=== PATIENT | male | born 1970 | race Caucasian/White ===

== ENCOUNTER 2017-06-14 17:56 | Observation (INO) | payer OTHER ==
[2017-06-14] MEDS ORDERED: Aspirin 81 MG Tab.Chew PO ONE (18:09)
[2017-06-14] MEDS ORDERED: Sodium Chloride 0.9% 10 ML Syringe FLUSH PRN (18:09)
[2017-06-14] MEDS ORDERED: Sodium Chloride 0.9% 2.5 ML Syringe FLUSH PRN (18:09)
[2017-06-14] MEDS ORDERED: Sodium Chloride 0.9% 1,000 ML IV ONE (18:09)
[2017-06-14] MEDS ORDERED: Nitroglycerin 0.4 MG Tab.SL SL ONE (18:09)
[2017-06-14] MEDS ORDERED: Nitroglycerin 2% Oint 1 GM UD Packet TOP ONE (18:14)
--- NOTE | 2017-06-14 18:14 | EDM.PDOC ---
ED HPI GENERAL MEDICAL PROBLEM - General Chief Complaint: Chest Pain Stated Complaint: CHEST PAIN Time Seen by Provider: 06/14/17 18:03 - History of Present Illness INITIAL COMMENTS - FREE TEXT/NARRATIVE: HISTORY AND PHYSICAL: History of present illness: Patient is 46-year-old white male with no significant past medical history presents with concern of left-sided chest pain started this morning described as dull ache he did have some radiation to his left arm he states this is minor on arrival he denies sulci shortness of breath diaphoresis nausea or vomiting. Review of systems: As per history of present illness and below otherwise all systems reviewed and negative. Past medical history: As per history of present illness and as reviewed below otherwise noncontributory. Surgical history: As per history of present illness and as reviewed below otherwise noncontributory. Social history: No reported history of drug or alcohol abuse. Family history: As per history of present illness and as reviewed below otherwise noncontributory. Physical exam: HEENT: Atraumatic, normocephalic, pupils reactive, negative for conjunctival pallor or scleral icterus, mucous membranes moist, throat clear, neck supple, nontender, trachea midline. Lungs: Clear to auscultation, breath sounds equal bilaterally, chest nontender. Heart: S1S2, regular, negative for clicks, rubs, or JVD. Abdomen: Soft, nondistended, nontender. Negative for masses or hepatosplenomegaly. Negative for costovertebral tenderness. Pelvis: Stable nontender. Genitourinary: Deferred. Rectal: Deferred. Extremities: Atraumatic, negative for cords or calf pain. Neurovascular unremarkable. Neuro: Awake, alert, oriented. Cranial nerves II through XII unremarkable. Cerebellum unremarkable. Motor and sensory unremarkable throughout. Exam nonfocal. Diagnostics: CBC CMP PT/INR troponin chest x-ray EKG Therapeutics: IV O2 monitor aspirin 324 mg Nitropaste 1 inch Impression: #1 chest pain Definitive disposition and diagnosis as appropriate pending reevaluation and review of above. Chest Pain Score (Numeric/FACES): 7 - Related Data Allergies Allergy/AdvReac Type Severity Reaction Status Date / Time No Known Allergies Allergy Verified 06/14/17 18:04 Home Meds: Home Meds Omeprazole 20 mg PO BID 06/14/17 [History] Past Medical History Gastrointestinal History: Reports: Other (See Below) Other Gastrointestinal History: vanegas's esophagus Social & Family History - Family History Family Medical History: Noncontributory - Tobacco Use Smoking Status *Q: Never Smoker - Caffeine Use Caffeine Use: Reports: Coffee - Recreational Drug Use Recreational Drug Use: No ED ROS GENERAL - Review of Systems Review Of Systems: ROS reveals no pertinent complaints other than HPI. ED EXAM, GENERAL - Physical Exam Exam: See Below (See dictation) Course - Vital Signs Last Recorded V/S: Last Vital Signs Temp 37.2 C 06/14/17 18:01 Pulse 70 06/14/17 18:01 Resp 20 06/14/17 18:01 BP 146/84 H 06/14/17 18:01 Pulse Ox 97 06/14/17 18:01 - Orders/Labs/Meds Orders: Active Orders 24 hr Category Date Time Status Cardiac Monitoring [RC] . DIRECTED Care 06/14/17 18:09 Active EKG 12 Lead [EKG Documentation Completion] [RC] STAT Care 06/14/17 18:11 Inactive EKG Documentation Completion [RC] STAT Care 06/14/17 18:09 Active Oxygen Therapy [RC] ASDIRECTED Care 06/14/17 18:09 Active Pulse Oximetry [RC] ASDIRECTED Care 06/14/17 18:09 Active Chest 1V Frontal [CR] Stat Exams 06/14/17 18:09 Taken UA W/MICROSCOPIC [URIN] Stat Lab 06/14/17 18:10 Ordered Sodium Chloride 0.9% [Normal Saline] 1,000 ml Med 06/14/17 18:09 Active IV .Bolus Sodium Chloride 0.9% [Saline Flush] Med 06/14/17 18:09 Active 10 ml FLUSH ASDIRECTED PRN Sodium Chloride 0.9% [Saline Flush] Med 06/14/17 18:09 Active 2.5 ml FLUSH ASDIRECTED PRN Saline Lock Insert [OM.PC] Stat Oth 06/14/17 18:09 Ordered Medication Orders Sodium Chloride (Normal Saline) 1,000 mls @ 125 mls/hr IV .Bolus ONE Stop: 06/15/17 02:08 Last Admin: 06/14/17 18:22 Dose: 125 mls/hr Sodium Chloride (Saline Flush) 10 ml FLUSH ASDIRECTED PRN PRN Reason: Keep Vein Open Sodium Chloride (Saline Flush) 2.5 ml FLUSH ASDIRECTED PRN PRN Reason: Keep Vein Open Labs: Laboratory Tests 06/14/17 06/14/17 Range/Units 18:07 18:07 WBC 6.94 (4.0-11.0) K/uL RBC 5.03 (4.50-5.90) M/uL Hgb 14.2 (13.0-17.0) g/dL Hct 41.1 (38.0-50.0) % MCV 81.7 (80.0-98.0) fL MCH 28.2 (27.0-32.0) pg MCHC 34.5 (31.0-37.0) g/dL RDW Std Deviation 39.5 (28.0-62.0) fl RDW Coeff of Milagro 13 (11.0-15.0) % Plt Count 191 (150-400) K/uL MPV 9.40 (7.40-12.00) fL Neut % (Auto) 59.5 (48.0-80.0) % Lymph % (Auto) 24.5 (16.0-40.0) % Archer % (Auto) 10.8 (0.0-15.0) % Eos % (Auto) 4.8 (0.0-7.0) % Baso % (Auto) 0.4 (0.0-1.5) % Neut # (Auto) 4.1 (1.4-5.7) K/uL Lymph # (Auto) 1.7 (0.6-2.4) K/uL Archer # (Auto) 0.8 (0.0-0.8) K/uL Eos # (Auto) 0.3 (0.0-0.7) K/uL Baso # (Auto) 0.0 (0.0-0.1) K/uL Nucleated RBC % 0.0 /100WBC Nucleated RBCs # 0 K/uL Sodium 141 (136-148) mmol/L Potassium 3.4 L (3.5-5.1) mmol/L Chloride 107 (98-107) mmol/L Carbon Dioxide 25.3 (21.0-32.0) mmol/L BUN 18 (7.0-18.0) mg/dL Creatinine 1.0 (0.8-1.3) mg/dL Est Cr Clr Drug Dosing 88.13 mL/min Estimated GFR (MDRD) > 60.0 ml/min Glucose 95 (74-106) mg/dL Calcium 8.7 (8.5-10.1) mg/dL Total Bilirubin 0.4 (0.2-1.0) mg/dL AST 25 (15-37) IU/L ALT 57 (14-63) IU/L Alkaline Phosphatase 43 L (46-116) U/L Troponin I < 0.050 (0.000-0.056) ng/mL Total Protein 7.4 (6.4-8.2) g/dL Albumin 3.7 (3.4-5.0) g/dL Globulin 3.7 H (2.0-3.5) g/dL Albumin/Globulin Ratio 1.0 L (1.3-2.8) Meds: Medications Generic Name Dose Route Start Last Admin Trade Name Freq PRN Reason Stop Dose Admin Sodium Chloride 1,000 mls @ 125 mls/hr 06/14/17 18:09 06/14/17 18:22 Normal Saline IV 06/15/17 02:08 125 mls/hr .Bolus ONE Administration Sodium Chloride 10 ml 06/14/17 18:09 Saline Flush FLUSH ASDIRECTED PRN Keep Vein Open Sodium Chloride 2.5 ml 06/14/17 18:09 Saline Flush FLUSH ASDIRECTED PRN Keep Vein Open Discontinued Medications Generic Name Dose Route Start Last Admin Trade Name Freq PRN Reason Stop Dose Admin Aspirin 324 mg 06/14/17 18:09 06/14/17 18:21 Aspirin PO 06/14/17 18:10 324 mg ONETIME ONE Administration Nitroglycerin 1 gm 06/14/17 18:14 06/14/17 18:22 Nitro-Bid 2% TOP 06/14/17 18:15 1 gm ONETIME ONE Administration Departure - Departure Time of Disposition: 19:07 Disposition: Refer to Observation Condition: Good Clinical Impression: Chest pain - Discharge Information Referrals: PCP,None [Primary Care Provider] - Forms: ED Department Discharge - My Orders Last 24 Hours: My Active Orders 06/14/17 18:09 Cardiac Monitoring [RC] . DIRECTED EKG Documentation Completion [RC] STAT Oxygen Therapy [RC] ASDIRECTED Pulse Oximetry [RC] ASDIRECTED Chest 1V Frontal [CR] Stat Sodium Chloride 0.9% [Normal Saline] 1,000 ml IV .Bolus Sodium Chloride 0.9% [Saline Flush] 10 ml FLUSH ASDIRECTED PRN Sodium Chloride 0.9% [Saline Flush] 2.5 ml FLUSH ASDIRECTED PRN Saline Lock Insert [OM.PC] Stat 06/14/17 18:10 UA W/MICROSCOPIC [URIN] Stat 06/14/17 18:11 EKG 12 Lead [EKG Documentation Completion] [RC] STAT - Assessment/Plan Last 24 Hours: My Active Orders 06/14/17 18:09 Cardiac Monitoring [RC] . DIRECTED EKG Documentation Completion [RC] STAT Oxygen Therapy [RC] ASDIRECTED Pulse Oximetry [RC] ASDIRECTED Chest 1V Frontal [CR] Stat Sodium Chloride 0.9% [Normal Saline] 1,000 ml IV .Bolus Sodium Chloride 0.9% [Saline Flush] 10 ml FLUSH ASDIRECTED PRN Sodium Chloride 0.9% [Saline Flush] 2.5 ml FLUSH ASDIRECTED PRN Saline Lock Insert [OM.PC] Stat 06/14/17 18:10 UA W/MICROSCOPIC [URIN] Stat 06/14/17 18:11 EKG 12 Lead [EKG Documentation Completion] [RC] STAT
[2017-06-14 18:47] LABS: CHLORIDE,CL 107 mmol/L (98-107); SODIUM,NA 141 mmol/L (136-148)
[2017-06-14] MEDS ORDERED: Acetaminophen 325 MG Tab PO PRN (20:51)
[2017-06-14] MEDS ORDERED: Ondansetron 4 MG/2 ML SDV IVPUSH PRN (20:51)
--- NOTE | 2017-06-14 20:57 | PCM.HP ---
H&P History of Present Illness - General Admit Problem/Dx: Admission Diagnosis/Problem Admission Diagnosis/Problem Chest pain - History of Present Illness Initial Comments - Free Text/Narative: 46 yo male with pmh of joann's esophagus who presents to the ED with chest pain. The chest pain started this morning which he describes as a constant leftsided chest pain that radiates to his shoulder. Moving his arm makes the pain worse. Exertion or rest does not change the chest pain. The chest pain has been constant for 12 hours. He thinks he has pulled a muscle but came to the ED because his told him to. Chest Pain Score (Numeric/FACES): 5 - Related Data Allergies/Adverse Reactions: Allergies Allergy/AdvReac Type Severity Reaction Status Date / Time No Known Allergies Allergy Verified 06/14/17 18:04 Home Medications: Home Meds Omeprazole 20 mg PO BID 06/14/17 [History] Acetaminophen [Tylenol] 650 mg PO Q4H PRN tablet 06/15/17 [Rx] Past Medical History Gastrointestinal History: Reports: Other (See Below) Other Gastrointestinal History: vanegas's esophagus Social & Family History - Family History Family Medical History: Noncontributory - Tobacco Use Smoking Status *Q: Never Smoker - Caffeine Use Caffeine Use: Reports: Coffee - Recreational Drug Use Recreational Drug Use: No H&P Review of Systems - Review of Systems: Review Of Systems: ROS reveals no pertinent complaints other than HPI. Exam - Exam Exam: See Below - Vital Signs Vital Signs: Last Vital Signs Temp 37.2 C 06/14/17 18:01 Pulse 71 06/14/17 19:25 Resp 17 06/14/17 19:25 BP 112/84 06/14/17 19:25 Pulse Ox 95 06/14/17 19:25 Weight: 104.2 kg - Exam General: Alert, Oriented HEENT: Mucosa Moist & [place] Neck: Supple, Trachea Midline Lungs: Clear to Auscultation, Normal Respiratory Effort Cardiovascular: Regular Rate, Regular Rhythm GI/Abdominal Exam: Soft, Non-Tender Extremities: Non-Tender, No Pedal Edema Skin: Warm, Dry, Intact - Patient Data Result Diagrams: 06/14/17 18:07 06/14/17 18:07 Problem List Initiated/Reviewed/Updated: Yes Orders Last 24hrs: Active Orders 24 hr Category Date Time Status Antiembolic Devices [RC] PER UNIT ROUTINE Care 06/14/17 20:52 Ordered Oxygen Therapy [RC] PRN Care 06/14/17 20:51 Ordered Up ad Sandra [RC] ASDIRECTED Care 06/14/17 20:51 Ordered VTE/DVT Education [RC] PER UNIT ROUTINE Care 06/14/17 20:51 Ordered Vital Signs [RC] Q4H Care 06/14/17 20:51 Ordered Regular Diet [DIET] Diet 06/14/17 Breakfast Ordered TROPONIN I [CHEM] Q6H Lab 06/15/17 00:00 Ordered TROPONIN I [CHEM] Q6H Lab 06/15/17 06:00 Ordered Acetaminophen [Tylenol] Med 06/14/17 20:51 Ordered 650 mg PO Q4H PRN Ondansetron [Zofran] Med 06/14/17 20:51 Ordered 4 mg IVPUSH Q4H PRN Sequential Compression Device [OM.PC] Per Unit Routine Oth 06/14/17 20:52 Ordered Resuscitation Status Routine Resus Stat 06/14/17 20:51 Ordered Medication Orders Sodium Chloride (Normal Saline) 1,000 mls @ 125 mls/hr IV .Bolus ONE Stop: 06/15/17 02:08 Last Admin: 06/14/17 18:22 Dose: 125 mls/hr Sodium Chloride (Saline Flush) 10 ml FLUSH ASDIRECTED PRN PRN Reason: Keep Vein Open Sodium Chloride (Saline Flush) 2.5 ml FLUSH ASDIRECTED PRN PRN Reason: Keep Vein Open Assessment/Plan Comment:: 46 yo male presents with chest pain. He was monitored overnight with no events on telemetry. He ruled out for acute coronary syndrome with serial troponins and EKG. He was discharged home to follow up with [facility] and outpatient cardiac stress testing referral.
--- NOTE | 2017-06-15 12:33 | CR ---
EXAM DATE: 06/14/17 PATIENT'S AGE: 46 Patient: JULISSA MITCHELL Facility: [place], [place] Site . Site : [id number] Study: XRay Chest [id number]/22/2018 7:06:43 PM Ordering Physician: Roxana Landry Final Report: INDICATION: CHEST PAIN TECHNIQUE: Chest 1 view. COMPARISON: None. FINDINGS: Cardiovascular and mediastinum: Heart size and vasculature are normal in caliber and appearance. Mediastinum is within normal limits. Lungs and pleural space: Lungs are clear. No sign of infiltrate or mass. No sign of pleural effusion. No pneumothorax. Bones and soft tissues: No significant findings. IMPRESSION: Unremarkable chest. Dictated by: Howie Geller MD @ 06/14/2017 19:13:22 (Electronic Signature) Report Signed by Proxy. B[facility] DAVID HOSPITALArnaud
== END 2017-06-15 12:45 | disposition home or self-care (01) ==
LOC: MW.ED 17:56 → MW.MS 19:08
PROVIDERS: ADMIT Family Medicine; ATTEND Family Medicine
DX: R07.9 Chest pain, unspecified (principal)
CPT/HCPCS: 36415; 71045; 80053; 81001; 84484; 85025; 96360; 96361; 99285; A9270; G0378; J7040; 99283

== ENCOUNTER 2018-11-17 15:08 | Emergency (ER) | payer OTHER ==
[2018-11-17] MEDS ORDERED: Tetracaine HCl/PF 0.5% 4 ML Bottle EYELF ONE (15:21)
--- NOTE | 2018-11-17 15:40 | EDM.PDOC ---
ED HPI GENERAL MEDICAL PROBLEM - General Chief Complaint: Eye Problems Stated Complaint: EYE PAIN Time Seen by Provider: 11/17/18 15:15 Source of Information: Reports: Patient History Limitations: Reports: No Limitations - History of Present Illness INITIAL COMMENTS - FREE TEXT/NARRATIVE: HISTORY AND PHYSICAL: History of present illness: Patient is a 48 old male presents to the ED today with concern of right eye pain 2 days. Patient states he is unsure if he got anything in his right eye but over the past 2 days has had redness and pain. Patient states he's been taking [id number] pain reliever with somewhat relief of symptoms. Patient denies any change in vision. Patient denies any other associated symptoms or any other symptoms or concerns at this time. Patient denies fever, chills, chest pain, shortness of breath, or cough. Denies headache, neck stiff ness, change in vision, syncope, or near syncope. Denies nausea, vomiting, abdominal pain, diarrhea, constipation, or dysuria. Has not noted any blood in urine or stool. Patient has been eating and drinking appropriately. Review of systems: As per history of present illness and below otherwise all systems reviewed and negative. Past medical history: As per history of present illness and as reviewed below otherwise noncontributory. Surgical history: As per history of present illness and as reviewed below otherwise noncontributory. Social history: See social history for further information Family history: As per history of present illness and as reviewed below otherwise noncontributory. Physical exam: General: Patient is alert, oriented, and in no acute distress. Patient sitting comfortably on exam table. HEENT: Atraumatic, normocephalic, pupils equal and reactive bilaterally, negative for conjunctival pallor or scleral icterus, mucous membranes moist, TMs normal bilaterally, throat clear, neck supple, nontender, trachea midline. No drooling or trismus noted. No meningeal signs. No hot potato voice noted. EOMs intact without pain or difficulty. The right sclera is injected. Visual acuity is intact. Fluorescein stain was lamp was performed and there is a pinpoint foreign body on the cornea at the 7 o'clock position. No obvious abrasion. Lungs: Clear to auscultation, breath sounds equal bilaterally, chest nontender. Heart: S1S2, regular rate and rhythm without overt murmur Abdomen: Soft, nondistended, nontender. Negative for masses or hepatosplenomegaly. Negative for costovertebral tenderness. Pelvis: Stable nontender. Genitourinary: Deferred. Rectal: Deferred. Skin: Intact, warm, dry. No lesions or rashes noted. Extremities: Atraumatic, negative for cords or calf pain. Neurovascular unremarkable. Neuro: Awake, alert, oriented. Cranial nerves II through XII unremarkable. Cerebellum unremarkable. Motor and sensory unremarkable throughout. Exam nonfocal. Notes: Dr. Matthew, ophthalmology on-call, consult on patient. Voices understanding and is agreeable to plan of care. Denies any further questions or concerns at this time. Diagnostics: Fluorescein was lamp Therapeutics: Tetracaine Prescription: Ciprodex Impression: Foreign body right eye Plan: 1. Apply medication to eye as prescribed. You can alternate ibuprofen and Tylenol as directed for pain and discomfort. 2. Go to [facility] tomorrow morning to be seen by Dr. Hess. His personal cell number is [phone]. He states that you can call this number tonight if her symptoms are not tolerable. The phone number and address has been provided to you above. 3. Return to the ED as needed and as discussed. Definitive disposition and diagnosis as appropriate pending reevaluation and review of above. - Related Data Allergies Allergy/AdvReac Type Severity Reaction Status Date / Time No Known Allergies Allergy Verified 11/17/18 15:53 Home Meds: Home Meds Ciprofloxacin/Dexamethasone [Ciprodex Otic Susp] 4 drop OT TID 5 Days #1 bottle 11/17/18 [Rx] Ciprofloxacin/Dexamethasone [Ciprodex Otic Susp] 4 drop OT TID 5 Days #1 bottle 11/17/18 [Rx] Past Medical History HEENT History: Reports: Impaired Vision, Other (See Below) Other HEENT History: wears contact lens Cardiovascular History: Reports: None Respiratory History: Reports: None Gastrointestinal History: Reports: Other (See Below) Other Gastrointestinal History: vanegas's esophagus Genitourinary History: Reports: None Musculoskeletal History: Reports: None Neurological History: Reports: None Psychiatric History: Reports: None Endocrine/Metabolic History: Reports: None Hematologic History: Reports: None Immunologic History: Reports: None Oncologic (Cancer) History: Reports: None Dermatologic History: Reports: None - Infectious Disease History Infectious Disease History: Reports: None - Past Surgical History Head Surgeries/Procedures: Reports: None GI Surgical History: Reports: Appendectomy Social & Family History - Family History Family Medical History: Noncontributory - Caffeine Use Caffeine Use: Reports: Coffee Caffeine Use Comment: 5-6cups/day ED ROS GENERAL - Review of Systems Review Of Systems: ROS reveals no pertinent complaints other than HPI. ED EXAM GENERAL W FULL EYE - Physical Exam Exam: See Below (See dictation) Course - Orders/Labs/Meds Meds: Medications Discontinued Medications Generic Name Dose Route Start Last Admin Trade Name Tam PRN Reason Stop Dose Admin Tetracaine HCl 1 ml 11/17/18 15:21 11/17/18 15:47 Tetracaine 0.5% Steri-Unit Ene EYELF 11/17/18 15:22 1 dose ASDIRECTED ONE Administration Departure - Departure Time of Disposition: 15:50 Disposition: Home, Self-Care 01 Clinical Impression: Foreign body, eye Qualifiers: Encounter type: initial encounter Laterality: right Qualified Code(s): T15.91XA - Foreign body on external eye, part unspecified, right eye, initial encounter - Discharge Information Prescriptions: Ciprofloxacin/Dexamethasone [Ciprodex Otic Susp] 4 drop OT TID 5 Days #1 bottle Ciprofloxacin/Dexamethasone [Ciprodex Otic Susp] 4 drop OT TID 5 Days #1 bottle Referrals: PCP,Unknown [Primary Care Provider] - Forms: ED Department Discharge Additional Instructions: The following information is given to patients seen in the emergency department who are being discharged to home. This information is to outline your options for follow-up care. We provide all patients seen in our emergency department with a follow-up referral. The need for follow-up, as well as the timing and circumstances, are variable depending upon the specifics of your emergency department visit. If you don't have a primary care physician on staff, we will provide you with a referral. We always advise you to contact your personal physician following an emergency department visit to inform them of the circumstance of the visit and for follow-up with them and/or the need for any referrals to a consulting specialist. The emergency department will also refer you to a specialist when appropriate. This referral assures that you have the opportunity for follow-up care with a specialist. All of these measure are taken in an effort to provide you with optimal care, which includes your follow-up. Under all circumstances we always encourage you to contact your private physician who remains a resource for coordinating your care. When calling for follow-up care, please make the office aware that this follow-up is from your recent emergency room visit. If for any reason you are refused follow-up, please contact the [facility] Emergency Department at and asked to speak to the emergency department charge nurse. [facility] [address] [place] [id number] [facility], Dr. Matthew, ophthalmology. [address] [place] [address] 1. Apply medication to eye as prescribed. You can alternate ibuprofen and Tylenol as directed for pain and discomfort. 2. Go to [facility] tomorrow morning to be seen by Dr. Hess. His personal cell number is [phone]. He states that you can call this number tonight if her symptoms are not tolerable. The phone number and address has been provided to you above. 3. Return to the ED as needed and as discussed.
[2018-11-17] MEDS ORDERED: Ciprofloxacin 0.3% Ophth Soln 5 ML Bottle EYERT STA (17:54)
== END 2018-11-17 16:01 | disposition home or self-care (01) ==
LOC: MW.ED 15:08
DX: T15.91XA Foreign body on external eye, part unspecified, right eye, initial encounter (principal)
CPT/HCPCS: 99283; A9270